=== PATIENT | male | born 1935 | race Caucasian/White ===

== ENCOUNTER 2019-10-02 10:27 | Inpatient (IN) | payer OTHER ==
[~2019-10-02] VITALS: Ht 172.7 cm; Wt 80.1 kg
[2019-10-02] MEDS ORDERED: SODIUM CHLORIDE 0.9% 1,000 ML IVB ONE ×2 (11:14→12:57)
[2019-10-02] MEDS ORDERED: ONDANSETRON HCL 4 MG/2 ML VIAL IV ONE ×2 (11:15→13:00)
[2019-10-02 11:50] LABS: Basophils # (auto) 0 10 ^3/uL (0-0.2); Basophils % (auto) 0.2 % (0.0-2.0); Eosinophils # (auto) 0 10 ^3/uL (0-0.8); Hematocrit 40.6 % (41.0-53.0); Hemoglobin 13.5 g/dL (13.5-17.5); Lymphocytes # (auto) 0.4 10 ^3/uL (0.4-5.4); Lymphocytes % (auto) 1.8 % (10.0-50.0); Mean Corpuscular Hemoglobin 33.1 pg (28.0-32.0); Mean Corpuscular Hgb Conc. 33.3 g/dL (32.0-36.0); Mean Corpuscular Volume 99.2 fL (80.0-100.0); Monocytes # (auto) 1.7 10 ^3/uL (0-1.3); Monocytes % (auto) 7.7 % (0.0-12.0); Neutrophils # (auto) 19.6 10 ^3/uL (1.6-8.6); Neutrophils % (auto) 90.3 % (37.0-80.0); Platelet Count (auto) 201 10^3/uL (140-450); Red Cell Distribution Width 13.9 % (11.8-14.3); White Blood Cell 21.7 10^3/uL (4.4-10.8)
[2019-10-02 12:04] LABS: INR 1.23 (0.9-1.15); Partial Thromboplastin Time 28.5 sec (23.64-32.05)
[2019-10-02 12:06] LABS: Albumin 3.3 g/dL (3.4-5.0); Anion Gap 8 (5-15); Blood Urea Nitrogen 18 mg/dL (7-18); Calcium 9.2 mg/dL (8.5-10.1); Carbon Dioxide 24 mmol/L (21-32); Chloride 106 mmol/L (98-107); Glucose 123 mg/dL (74-106); Potassium 3.6 mmol/L (3.5-5.1); Sodium 138 mmol/L (136-145)
[2019-10-02 12:07] LABS: Magnesium 2.4 mg/dL (1.6-2.6)
[2019-10-02 12:12] LABS: Alanine Aminotransferase 16 U/L (16-61); Alkaline Phosphatase 124 U/L (45-117); Aspartate Aminotransferase 15 U/L (15-37); BUN/Creatinine Ratio 20.2; Bilirubin, Total 1.6 mg/dL (0.2-1.0); GFR African American 104 mL/min; GFR Non-African American 86 mL/min
[2019-10-02] MEDS ORDERED: cefTRIAXone 1GM/50ML D5W 50 ML IV ONE (14:30)
[2019-10-02] MEDS ORDERED: MORPHINE SULF INJ 2 MG/ML SYRINGE 1ML IV ONE (14:30)
[2019-10-02 16:35] LABS: Urine Bacteria MOD /hpf (None Seen); Urine Blood 1+ /uL (Negative); Urine WBC 3812 /hpf (0 - 3)
[2019-10-02 16:41] LABS: Urine Specific Gravity 1.015 (1.001-1.035)
[2019-10-02] MEDS ORDERED: NITROGLYCERIN 0.4 MG SL TAB SL PRN (16:45)
[2019-10-02] MEDS ORDERED: traMADol HCL 50 MG TAB PO PRN (16:45)
[2019-10-02] MEDS ORDERED: PIPERACILLIN-TAZOB 3.375GM 100 ML IV ONE (16:45)
[2019-10-02] MEDS ORDERED: ONDANSETRON HCL 4 MG/2 ML VIAL IV PRN (16:45)
[2019-10-02] MEDS ORDERED: MORPHINE SULF INJ 2 MG/ML SYRINGE 1ML IV PRN (16:45)
[2019-10-02] MEDS ORDERED: DEXTROSE (50%) 50ML SYRG IV PRN (16:45)
[2019-10-02] MEDS ORDERED: ACETAMINOPHEN 500 MG TAB PO PRN (16:45)
[2019-10-02] MEDS: SODIUM CHLORIDE 0.9% 1,000 ML IV SCH (17:23)
[2019-10-02] MEDS: ENOXAPARIN SOD 40 MG/0.4 ML SYRINGE SC SCH (17:24)
[2019-10-02] MEDS: PIPERACILLIN-TAZOB 3.375GM 100 ML IV SCH ×2 (17:24→22:17)
[2019-10-02] MEDS: InsuLIN REG 1unit/0.01ml Soln (100units/ml) SC SCH ×2 (17:24→22:17)
[2019-10-02] MEDS: ACCU-CHEK COMFORT CURVE STRIP VI SCH ×2 (17:32→22:17)
[2019-10-02] MEDS: FAMOTIDINE 20 MG TAB PO SCH (21:59)
[2019-10-02 22:00] VITALS: BP 121/62
--- NOTE | 2019-10-03 02:10 | NUR ---
HOSPITALIST PAGED PATIENT'S THIRD SET OF TROPONIN SHOWS AN INCREASE TO [phone]. HOSPITALIST PAGED TO SEE IF AN ADDITIONAL TROPONIN DESIRED. WILL AWAIT CALL BACK OR ORDERS.
--- NOTE | 2019-10-03 02:24 | NUR ---
HOSPITALIST REACHED. INFORMED MD OF RISING TROPONIN. VALUE NOT CRITICAL AND PATIENT NOT COMPLAINING OF CHEST PAIN. NO NEW ORDERS AT THIS TIME. PER MD, IF PATIENT BEGINS TO COMPLAIN, THEN PERFORM EKG AND ORDER TROPONIN. WILL CONTINUE TO MONITOR AT THIS TIME.
[2019-10-03] MEDS: SODIUM CHLORIDE 0.9% 1,000 ML IV SCH ×2 (02:33→11:45)
[2019-10-03 05:00] VITALS: BP 119/60
[2019-10-03] MEDS: PIPERACILLIN-TAZOB 3.375GM 100 ML IV SCH ×4 (05:06→22:33)
[2019-10-03 06:22] LABS: Basophils # (auto) 0 10 ^3/uL (0-0.2); Basophils % (auto) 0.2 % (0.0-2.0); Eosinophils # (auto) 0 10 ^3/uL (0-0.8); Eosinophils % (auto) 0.2 % (0.0-7.0); Hematocrit 41.3 % (41.0-53.0); Hemoglobin 13.9 g/dL (13.5-17.5); Lymphocytes # (auto) 0.8 10 ^3/uL (0.4-5.4); Lymphocytes % (auto) 5.3 % (10.0-50.0); Mean Corpuscular Hemoglobin 33.6 pg (28.0-32.0); Mean Corpuscular Hgb Conc. 33.6 g/dL (32.0-36.0); Mean Corpuscular Volume 100.1 fL (80.0-100.0); Monocytes # (auto) 1.4 10 ^3/uL (0-1.3); Monocytes % (auto) 9.4 % (0.0-12.0); Neutrophils # (auto) 12.4 10 ^3/uL (1.6-8.6); Neutrophils % (auto) 84.9 % (37.0-80.0); Platelet Count (auto) 189 10^3/uL (140-450); Red Blood Cells 4.13 10^6/uL (4.5-5.90); Red Cell Distribution Width 14.2 % (11.8-14.3); White Blood Cell 14.6 10^3/uL (4.4-10.8)
[2019-10-03] MEDS: ACCU-CHEK COMFORT CURVE STRIP VI SCH ×4 (07:00→22:32)
[2019-10-03] MEDS: InsuLIN REG 1unit/0.01ml Soln (100units/ml) SC SCH ×4 (07:00→22:33)
[2019-10-03 07:50] VITALS: BP 117/61
--- NOTE | 2019-10-03 07:50 | NUR ---
OPENING SHIFT NOTE ASSUMED CARE OF PATIENT FROM SHAFT TENDER RN KAYLAH. PATIENT IS AWAKE, ALERT, AND ORIENTED X4. PATIENT HAS NO S/S OF DISTRESS/SOB OR PAIN. INSTRUCTED PATIENT ON POC, PATIENT VERBALIZED UNDERSTANDING. BED IS IN LOWEST POSITION WITH SIDE RAILS RAISED X2, BED WHEELS LOCKED, AND CALL LIGHT IS WITHIN REACH. WILL CONTINUE TO MONITOR.
[2019-10-03 09:00] VITALS: BP 117/61
--- NOTE | 2019-10-03 09:18 | NUR ---
HANDOFF REPORT GIVEN TO GABRIEL ERAZO. PATIENT HAS NO S/S OF DISTRESS/SOB OR PAIN AT THIS TIME.
--- NOTE | 2019-10-03 09:30 | NUR ---
Dressing to IV changed at this time noted bloody. Patient tolerated well. Cont care
[2019-10-03] MEDS: ENOXAPARIN SOD 40 MG/0.4 ML SYRINGE SC SCH (11:25)
[2019-10-03] MEDS: FAMOTIDINE 20 MG TAB PO SCH ×2 (11:26→22:33)
--- NOTE | 2019-10-03 12:07 | NUR ---
Positive blood culture shows gram negative rods. MD Dodge paged to notify and voicemail left on answering service. Cont care
[2019-10-03 13:00] VITALS: BP 101/56
[2019-10-03 17:00] VITALS: BP 117/73
--- NOTE | 2019-10-03 19:00 | NUR ---
Patient care endorsed endorsed care to She ryder. Patient accidentally removed IV. New IV started to right FA 20 G pt tolerated well and IV abx resumed as ordered. No distress noted or sob. Call light within reach. Fall precs in place per protocol.
--- NOTE | 2019-10-03 19:40 | NUR ---
RECEIVED PATIENT FROM DAY SHIFT RN. PATIENT RESTING IN BED. NO S/S OF DISTRESS NOTED. DENIED PAIN FOR NOW. REPOSITIONED PATIENT TO COMFORT. PATIENT TOLERATED WELL. REORIENTED PATIENT PLACE AND SITUATION. POC INSTRUCTED AND ENCOURAGED PATIENT TO CALL FOR TRUCK MECHANIC APPRENTICE IF NEEDED. BED IN LOWEST POSITION WITH SIDE RAILS UP X 2. CALL ESQUIVEL WITHIN REACH. ALARM ON. CONTINUE TO MONITOR FOR CHANGES Q1H AND PRN.
[2019-10-03 22:00] VITALS: BP 137/55
--- NOTE | 2019-10-03 22:34 | NUR ---
ACCU-CHECK, BS 157. INSULIN GIVEN ORDERED. CONTINUE TO MONITOR.
--- NOTE | 2019-10-04 02:09 | NUR ---
PATIENT SLEEPING. NO S/S OF DISTRESS NOTED. CONTINUE TO MONITOR.
[2019-10-04] MEDS: SODIUM CHLORIDE 0.9% 1,000 ML IV SCH ×2 (04:46→17:05)
[2019-10-04] MEDS: PIPERACILLIN-TAZOB 3.375GM 100 ML IV SCH ×4 (04:47→22:25)
[2019-10-04 05:00] VITALS: BP 118/54
[2019-10-04] MEDS: ACCU-CHEK COMFORT CURVE STRIP VI SCH ×4 (06:18→22:25)
[2019-10-04] MEDS: InsuLIN REG 1unit/0.01ml Soln (100units/ml) SC SCH ×4 (06:18→22:30)
--- NOTE | 2019-10-04 06:23 | NUR ---
ACCU-CHECK, BS 103. NO COVERAGE. CONTINUE TO MONITOR.
[2019-10-04 07:08] LABS: Basophils # (auto) 0 10 ^3/uL (0-0.2); Basophils % (auto) 0.2 % (0.0-2.0); Eosinophils # (auto) 0.1 10 ^3/uL (0-0.8); Hematocrit 38.2 % (41.0-53.0); Hemoglobin 12.7 g/dL (13.5-17.5); Lymphocytes # (auto) 0.8 10 ^3/uL (0.4-5.4); Lymphocytes % (auto) 7.1 % (10.0-50.0); Mean Corpuscular Hemoglobin 32.9 pg (28.0-32.0); Mean Corpuscular Hgb Conc. 33.2 g/dL (32.0-36.0); Mean Corpuscular Volume 99.1 fL (80.0-100.0); Monocytes # (auto) 1.6 10 ^3/uL (0-1.3); Neutrophils # (auto) 8.6 10 ^3/uL (1.6-8.6); Neutrophils % (auto) 77.7 % (37.0-80.0); Platelet Count (auto) 208 10^3/uL (140-450); Red Blood Cells 3.85 10^6/uL (4.5-5.90); Red Cell Distribution Width 13.9 % (11.8-14.3); White Blood Cell 11.1 10^3/uL (4.4-10.8)
--- NOTE | 2019-10-04 07:25 | NUR ---
OPENING SHIFT NOTE ASSUMED CARE OF PATIENT FROM ART EDITOR RN TONIO. PATIENT IS AWAKE, ALERT, AND ORIENTED X4. PATIENT HAS NO S/S OF DISTRESS/SOB OR PAIN. INSTRUCTED PATIENT ON POC, PATIENT VERBALIZED UNDERSTANDING. BED IS IN LOWEST POSITION WITH SIDE RAILS RAISED X2, BED WHEELS LOCKED, AND CALL LIGHT IS WITHIN REACH. WILL CONTINUE TO MONITOR.
[2019-10-04 07:27] LABS: Calcium 8.7 mg/dL (8.5-10.1); Potassium 3.4 mmol/L (3.5-5.1)
[2019-10-04 07:29] LABS: BUN/Creatinine Ratio 18.7
[2019-10-04 08:20] VITALS: BP 134/79
[2019-10-04 08:55] VITALS: BP 134/79
[2019-10-04] MEDS: FAMOTIDINE 20 MG TAB PO SCH ×2 (09:58→22:25)
[2019-10-04] MEDS: ENOXAPARIN SOD 40 MG/0.4 ML SYRINGE SC SCH (10:00)
--- NOTE | 2019-10-04 12:10 | NUR ---
MIDOU BEDSIDE UPDATED MD ON PATIENT'S STATUS, MD IS AWARE. MD ORDERED POTASSIUM, LACTULOSE AND COLACE TO BE GIVEN.
[2019-10-04] MEDS ORDERED: POTASSIUM CHL 20 Meq TABLET PO ONE (12:15)
[2019-10-04] MEDS ORDERED: LACTULOSE 20Gm/30ML SOLN PO ONE (12:30)
[2019-10-04 13:06] VITALS: BP 124/68
[2019-10-04 16:43] VITALS: BP 107/64
--- NOTE | 2019-10-04 19:05 | NUR ---
CLOSING SHIFT NOTE ENDORSED CARE TO CRIPPLE CHASER RN TONIO. PATIENT HAS NO S/S OF DISTRESS/SOB OR PAIN AT THIS TIME.
--- NOTE | 2019-10-04 19:38 | NUR ---
RECEIVED PATIENT FROM DAY SHIFT RN. PATIENT JUST BACK FROM BATHROOM. ASSISTED PATIENT BACK TO THE BED. NO S/S OF DISTRESS NOTED. DENIED PAIN FOR NOW. POC INSTRUCTED AND ENCOURAGED PATIENT TO CALL FOR ROLL SHEETING CUTTER IF NEEDED. BED IN LOWEST POSITION WITH SIDE RAILS UP X 2. CALL ESQUIVEL WITHIN REACH. ALARM ON. CONTINUE TO MONITOR FOR CHANGES Q1H AND PRN.
--- NOTE | 2019-10-04 21:40 | NUR ---
ASSISTED PATIENT FOR URINAL AND BACK TO BED. PATIENT TOLERATED WELL. CONTINUE TO MONITOR.
[2019-10-04] MEDS: DOCUSATE SOD 100 MG CAP PO SCH (22:25)
--- NOTE | 2019-10-04 22:36 | NUR ---
ACCU-CHECK, BS 139. PATIENT REFUSED TO TAKE INSULIN AND HE'S BEEN REFUSED INSULIN DAY SHIFT TOO. WILL PASS IT TO DAY SHIFT. CONTINUE TO MONITOR.
[2019-10-04 23:11] VITALS: BP 130/61
--- NOTE | 2019-10-05 00:57 | NUR ---
ASSISTED PATIENT FOR URINAL AND BACK TO BED. PATIENT TOLERATED WELL. CONTINUE TO MONITOR.
--- NOTE | 2019-10-05 02:58 | NUR ---
PATIENT SLEEPING. NO S/S OF DISTRESS NOTED. CONTINUE CARE.
[2019-10-05 05:18] VITALS: BP 129/62
[2019-10-05] MEDS: PIPERACILLIN-TAZOB 3.375GM 100 ML IV SCH ×3 (05:31→15:56)
[2019-10-05] MEDS: ACCU-CHEK COMFORT CURVE STRIP VI SCH ×3 (06:26→17:00)
[2019-10-05] MEDS: InsuLIN REG 1unit/0.01ml Soln (100units/ml) SC SCH ×3 (06:26→17:00)
--- NOTE | 2019-10-05 06:27 | NUR ---
ACCU-CHECK, BS 110, NO COVERAGE. CONTINUE TO MONITOR.
--- NOTE | 2019-10-05 07:33 | NUR ---
RECEIVED PATIENT FROM [facility] SHIFT RN. AWAKE ALERT AND ORIENTED X4. DENIES SOB/PAIN, NO S/S DISTRESS NOTED. PLAN OF CARE DISCUSSED. BED IN LOW AND LOCKED POSITION WITH X2 RAILS UP. ENCOURAGED TO CALL FOR ASSISTANCE PRN. WILL CONTINUE TO MONITOR Q1HR AND PRN.
[2019-10-05 08:00] VITALS: BP 105/57
[2019-10-05 08:56] VITALS: BP 105/57
[2019-10-05] MEDS: FAMOTIDINE 20 MG TAB PO SCH (09:30)
[2019-10-05] MEDS: DOCUSATE SOD 100 MG CAP PO SCH (09:31)
[2019-10-05] MEDS: ENOXAPARIN SOD 40 MG/0.4 ML SYRINGE SC SCH (09:31)
[2019-10-05 12:48] VITALS: BP 124/74
--- NOTE | 2019-10-05 13:06 | NUR ---
Nutrition Assessment Notes Please refer to link for full assessment notes. Est Energy needs: [id number] kcals (20-23 kcal/kgBW) Est Protein needs: 80-88 gms/day (1.0-1.1 gm/kgBW) Will continue to monitor and reassess prn. Addendum: 10/05/19 at [address] Amended: Links added.
--- NOTE | 2019-10-05 13:48 | NUR ---
ASSESSMENT CONSTRUCTION PRODUCER SPOKE WITH PT'S SPOUSE SHARON [phone] PER INITIAL ASSESSMENT. PT IS A 84 YR OLD MALE ADMITTED FOR SEPSIS, HT OF HTN, CAD, DM. PT'S PCP IS DR. JUAN AT [facility] IN [place]. PT HAS AN AHCD, SPOUSE IS EMERGENCY DECISION MAKER. PT RESIDES WITH SPOUSE, THEY ARE BOTH INDEPENDENT WITH ADL'S, NO DME. SPOUSE SAYS PT HAS BEEN WEAK IN RECENT WEEKS AND HAD DIFFICULTY AMBULATING. CONSTRUCTION PRODUCER CONFERRED WITH BEDSIDE RN XENIA, PT HAS WORKED WITH PT DURING ADMISSION AND IS AMBULATING WELL AND GOING TO THE RESTROOM ON HIS OWN. SS TO CONTINUE MONITORING PT FOR POSSIBLE ANTIBIOTICS NEEDS POST DC. PT TO CONTINUE WORKING PT, SS TO CONTINUE MONITORING FOR DME (WALKER) NEEDS. NO OTHER SS NEEDS IDENTIFIED, SS TO REMAIN AVAILABLE NEEDED. Addendum: 10/05/19 at 1354 by ELLIE GRAHAM SS Amended: Links added.
[2019-10-05 17:20] VITALS: BP 131/75
--- NOTE | 2019-10-05 19:15 | NUR ---
OPENING SHIFT NOTE ASSUMED CARE OF PATIENT FROM DAY SHIFT. PATIENT IS AWAKE, ALERT, AND ORIENTED X4. PATIENT HAS NO S/S OF DISTRESS/SOB OR PAIN. INSTRUCTED PATIENT ON POC, PATIENT VERBALIZED UNDERSTANDING. BED IS IN LOWEST POSITION WITH SIDE RAILS RAISED X2, BED WHEELS LOCKED, AND CALL LIGHT IS WITHIN REACH. WILL CONTINUE TO MONITOR.
[2019-10-05 19:34] VITALS: BP 131/75
--- NOTE | 2019-10-05 20:24 | NUR ---
Discharge instructions given as ordered. Encourage to follow up with PMD as instructed. All questions and concerns addressed. Patient verbalized understanding. Medication reconciliation form completed and copy given to patient. Home medications held in Pharmacy returned to patient. IV removed with catheter intact, pressure dressing applied. Telemetry unit returned to ICU. Patient taken to vehicle via wheelchair with all personal belongings, accompanied by staff. No distress noted at time of departure.
== END 2019-10-05 20:22 | disposition home or self-care (01) | DRG 872 ==
LOC: ER 10:27 → TELE 10:28 → TELE-WESTW 21:00
PROVIDERS: ADMIT Internal Medicine; ATTEND Internal Medicine Geriatric Medicine
DX: A41.9 Sepsis, unspecified organism (principal); N39.0 Urinary tract infection, site not specified; K80.20 Calculus of gallbladder without cholecystitis without obstruction; I10 Essential (primary) hypertension; E11.9 Type 2 diabetes mellitus without complications; E66.3 Overweight; E78.5 Hyperlipidemia, unspecified; K57.30 Diverticulosis of large intestine without perforation or abscess without bleeding; N21.0 Calculus in bladder; I25.10 Atherosclerotic heart disease of native coronary artery without angina pectoris; Z82.49 Family history of ischemic heart disease and other diseases of the circulatory system; Z83.3 Family history of diabetes mellitus; Z68.25 Body mass index [BMI] 25.0-25.9, adult
CPT/HCPCS: 36415; 71046; 74176; 80048; 80053; 81001; 82150; 82962; 83036; 83605; 83690; 83735; 83880; 84484; 85025; 85610; 85730; 87040; 87077; 87086; 87186; 93005; G0378; J0696; J1815; J2405; J2543

== ENCOUNTER 2022-06-20 05:47 | Inpatient (IN) | payer OTHER ==
[~2022-06-20] VITALS: Ht 170.2 cm; Wt 75.7 kg
[2022-06-20 06:33] LABS: INR 1.03 (0.9-1.15); Partial Thromboplastin Time 26.3 sec (24.6-33.4)
[2022-06-20 06:34] LABS: Albumin 3.4 g/dL (3.4-5.0); Calcium 8.9 mg/dL (8.5-10.1); Magnesium 2.2 mg/dL (1.6-2.6); Potassium 3.7 mmol/L (3.5-5.1)
[2022-06-20 06:41] LABS: BUN/Creatinine Ratio 23.3; Bilirubin, Total 0.6 mg/dL (0.2-1.0); Total Protein 7.5 g/dL (6.4-8.2)
[2022-06-20] MEDS ORDERED: NITROGLYCERIN 0.4 MG SL TAB SL ONE (06:45)
[2022-06-20] MEDS ORDERED: ASPirin 325 MG TAB PO ONE (06:45)
[2022-06-20] MEDS ORDERED: ENOXAPARIN SOD 80 MG/0.8ML SYRINGE SC ONE (07:30)
[2022-06-20 08:17] LABS: Basophils # (auto) 0.1 10 ^3/uL (0-0.2); Basophils % (auto) 0.9 % (0.0-2.0); Eosinophils # (auto) 0.1 10 ^3/uL (0-0.8); Eosinophils % (auto) 1.6 % (0.0-7.0); Hemoglobin 12.9 g/dL (13.5-17.5); Lymphocytes % (auto) 14.1 % (10.0-50.0); Mean Corpuscular Hemoglobin 33.2 pg (28.0-32.0); Mean Corpuscular Hgb Conc. 33.9 g/dL (32.0-36.0); Mean Corpuscular Volume 97.8 fL (80.0-100.0); Monocytes # (auto) 0.7 10 ^3/uL (0-1.3); Monocytes % (auto) 9.1 % (0.0-12.0); Neutrophils # (auto) 5.4 10 ^3/uL (1.6-8.6); Neutrophils % (auto) 74.3 % (37.0-80.0); Nucleated Red Blood Cells % 0.1 %; Red Blood Cells 3.89 10^6/uL (4.5-5.90); Red Cell Distribution Width 13.4 % (11.8-14.3); White Blood Cell 7.2 10^3/uL (4.4-10.8)
[2022-06-20 09:11] LABS: Urine Bacteria FEW /hpf (None Seen); Urine Blood Negative /uL (Negative); Urine Mucus FEW (None Seen); Urine Specific Gravity 1.014 (1.001-1.035); Urine WBC 196 /hpf (0 - 3)
[2022-06-20] MEDS ORDERED: AMLO-496 PO (13:39)
[2022-06-20] MEDS ORDERED: TAMS0.4C36 PO (13:39)
[2022-06-20] MEDS ORDERED: FUR20T PO (13:39)
[2022-06-20] MEDS ORDERED: POTA8TAB2 PO (13:39)
[2022-06-20] MEDS ORDERED: METF-370 PO (13:39)
[2022-06-20] MEDS ORDERED: LOVA20TA4 PO (13:39)
[2022-06-20] MEDS ORDERED: LOSA-39 PO (13:39)
[2022-06-20] MEDS ORDERED: CETI-120 PO (13:39)
[2022-06-20] MEDS ORDERED: NITROGLYCERIN 0.4 MG SL TAB SL PRN (13:45)
[2022-06-20] MEDS ORDERED: MORPHINE SULFATE INJ 2 MG/ml SYRG IV PRN (13:45)
[2022-06-20] MEDS ORDERED: cefTRIAXone 1GM/50ML D5W 50 ML IV ONE (14:00)
[2022-06-20] MEDS ORDERED: DEXTROSE (50%) 50ML SYRG IV PRN (14:00)
[2022-06-20] MEDS: PRAVASTATIN SODIUM 20 MG TAB PO SCH (14:07)
[2022-06-20 14:08] LABS: Cholesterol 159 mg/dL (< 200); Triglycerides 52 mg/dL (< 150)
[2022-06-20] MEDS: SODIUM CHLORIDE 0.9% 1,000 ML IV SCH (14:11)
[2022-06-20 14:13] LABS: HDL Cholesterol 64 mg/dL (40-59); LDL Cholesterol 89 mg/dL (< 100)
[2022-06-20 14:57] VITALS: BP 140/62
[2022-06-20 16:40] VITALS: BP 140/59
[2022-06-20] MEDS: InsuLIN REG 1unit/0.01ml Soln (100units/ml) SC SCH ×2 (17:00→21:45)
[2022-06-20] MEDS: ACCU-CHEK COMFORT CURVE STRIP VI SCH ×2 (17:00→21:38)
[2022-06-20 21:49] VITALS: BP 154/71
[2022-06-21] VITALS (10 sets, daily range): BP systolic 88–155; BP diastolic 46–80
[2022-06-21] MEDS: ACCU-CHEK COMFORT CURVE STRIP VI SCH ×4 (06:26→22:37)
[2022-06-21] MEDS: InsuLIN REG 1unit/0.01ml Soln (100units/ml) SC SCH ×4 (06:26→22:00)
[2022-06-21 07:51] LABS: Basophils # (auto) 0.1 10 ^3/uL (0-0.2); Basophils % (auto) 0.6 % (0.0-2.0); Eosinophils # (auto) 0.2 10 ^3/uL (0-0.8); Eosinophils % (auto) 2.2 % (0.0-7.0); Hemoglobin 13.3 g/dL (13.5-17.5); Lymphocytes # (auto) 1.3 10 ^3/uL (0.4-5.4); Lymphocytes % (auto) 13.2 % (10.0-50.0); Mean Corpuscular Hemoglobin 33.2 pg (28.0-32.0); Mean Corpuscular Volume 97.5 fL (80.0-100.0); Monocytes % (auto) 10.2 % (0.0-12.0); Neutrophils # (auto) 7.5 10 ^3/uL (1.6-8.6); Neutrophils % (auto) 73.8 % (37.0-80.0); Red Cell Distribution Width 13.7 % (11.8-14.3); White Blood Cell 10.2 10^3/uL (4.4-10.8)
[2022-06-21 08:04] LABS: Albumin 3.2 g/dL (3.4-5.0); BUN/Creatinine Ratio 18.5; Calcium 8.9 mg/dL (8.5-10.1); Potassium 3.8 mmol/L (3.5-5.1)
[2022-06-21 08:07] LABS: Bilirubin, Total 0.8 mg/dL (0.2-1.0); Total Protein 7.2 g/dL (6.4-8.2)
[2022-06-21] MEDS: ASPirin 81 mg TAB PO SCH (09:07)
[2022-06-21] MEDS: LOSARTAN POTASSIUM 50 MG TAB PO SCH (09:08)
[2022-06-21] MEDS: amLODIPine BESYLATE 5 MG TAB PO SCH (09:08)
[2022-06-21] MEDS: PRAVASTATIN SODIUM 20 MG TAB PO SCH (09:08)
[2022-06-21] MEDS: cefTRIAXone 1GM/50ML D5W 50 ML IV SCH (09:09)
[2022-06-21] MEDS: TAMSULOSIN HYDROCHLORIDE 0.4 MG CAP PO SCH (09:09)
[2022-06-21] MEDS: SODIUM CHLORIDE 0.9% 1,000 ML IV SCH (09:12)
[2022-06-21] MEDS ORDERED: ANGIOMAX 250 MG VIAL IV ONE (15:20)
[2022-06-21] MEDS ORDERED: fentaNYL CITRATE 100 MCG/2 ML VL ONE (15:20)
[2022-06-21] MEDS ORDERED: MIDAZOLAM HCL 2MG/2ML 2ml VIAL (1mg/ml) ONE (15:21)
[2022-06-21] MEDS ORDERED: SODIUM CHL 0.9% 50 ML ONE (15:21)
[2022-06-21] MEDS ORDERED: IODIXANOL 320MG/ML 100ML BTL IV ONE (15:22)
[2022-06-21] MEDS ORDERED: CLOPIDOGREL 300 MG TAB ONE (16:17)
[2022-06-22 05:00] VITALS: BP 128/57
[2022-06-22] MEDS: ACCU-CHEK COMFORT CURVE STRIP VI SCH ×2 (06:44→11:46)
[2022-06-22] MEDS: InsuLIN REG 1unit/0.01ml Soln (100units/ml) SC SCH ×2 (06:44→11:30)
[2022-06-22] MEDS: SODIUM CHLORIDE 0.9% 1,000 ML IV SCH (06:44)
[2022-06-22 08:00] VITALS: BP 128/62
[2022-06-22 09:00] VITALS: BP 128/62
[2022-06-22] MEDS: ASPirin 81 mg TAB PO SCH (09:41)
[2022-06-22] MEDS: cefTRIAXone 1GM/50ML D5W 50 ML IV SCH (09:41)
[2022-06-22] MEDS: TAMSULOSIN HYDROCHLORIDE 0.4 MG CAP PO SCH (09:42)
[2022-06-22] MEDS: LOSARTAN POTASSIUM 50 MG TAB PO SCH (09:42)
[2022-06-22] MEDS: amLODIPine BESYLATE 5 MG TAB PO SCH (09:42)
[2022-06-22] MEDS: PRAVASTATIN SODIUM 20 MG TAB PO SCH (09:43)
[2022-06-22] MEDS ORDERED: CLOPIDOGREL BISULFATE 75 MG TAB PO SCH (10:00)
[2022-06-22] MEDS ORDERED: ASPI1TAB20 PO (10:02)
[2022-06-22] MEDS ORDERED: CLOP75TA28 PO (10:02)
[2022-06-22] MEDS ORDERED: CIPR-273 PO (10:02)
[2022-06-22 11:09] VITALS: BP 128/62
[2022-06-22 13:00] VITALS: BP 100/53
== END 2022-06-22 13:50 | disposition home or self-care (01) | DRG 246 ==
LOC: ER 05:47 → EDBD 05:47 → TELE 13:36 → TELE-WESTW 13:37
PROVIDERS: ADMIT Nurse Practitioner Family; ATTEND Internal Medicine Geriatric Medicine
PROC: 4A023N7 Measurement of Cardiac Sampling and Pressure, Left Heart, Percutaneous Approach (ICD-10-PCS; principal; 2022-06-21)
PROC: 027235Z Dilation of Coronary Artery, Three Arteries with Two Drug-eluting Intraluminal Devices, Percutaneous Approach (ICD-10-PCS; 2022-06-21)
PROC: B211YZZ Fluoroscopy of Multiple Coronary Arteries using Other Contrast (ICD-10-PCS; 2022-06-21)
PROC: B215YZZ Fluoroscopy of Left Heart using Other Contrast (ICD-10-PCS; 2022-06-21)
DX: I21.4 Non-ST elevation (NSTEMI) myocardial infarction (principal); I50.31 Acute diastolic (congestive) heart failure; N39.0 Urinary tract infection, site not specified; E11.9 Type 2 diabetes mellitus without complications; I25.10 Atherosclerotic heart disease of native coronary artery without angina pectoris; Z20.822 Contact with and (suspected) exposure to COVID-19; E66.9 Obesity, unspecified; I11.0 Hypertensive heart disease with heart failure; E78.5 Hyperlipidemia, unspecified; N40.0 Benign prostatic hyperplasia without lower urinary tract symptoms; Z82.49 Family history of ischemic heart disease and other diseases of the circulatory system; I25.2 Old myocardial infarction; Z83.3 Family history of diabetes mellitus; Z68.26 Body mass index [BMI] 26.0-26.9, adult
CPT/HCPCS: 36415; 71045; 80053; 80061; 81001; 82962; 83735; 83880; 84443; 84484; 85025; 85379; 85610; 85730; 87086; 87088; 87186; 87426; 92928; 92929; 93005; 93306; 93458; 96365; 96372; 99152; 99153; 99291; G0378; J0696; J1815; J2250; Q9967

== ENCOUNTER 2022-08-03 01:44 | Inpatient (IN) | payer OTHER ==
[~2022-08-03] VITALS: Ht 180.3 cm; Wt 68.3 kg
[2022-08-03] VITALS (44 sets, daily range): BP systolic 95–145; BP diastolic 32–71
[~2022-08-03 01:44] MED LIST: AMLO-496 PO; ASPI1TAB20 PO; CETI-120 PO; CIPR-273 PO; CLOP75TA28 PO; FUR20T PO; LOSA-39 PO; LOVA20TA4 PO; METF-370 PO; POTA8TAB2 PO; TAMS0.4C36 PO
[2022-08-03] MEDS ORDERED: SODIUM CHLORIDE 0.9% 1,000 ML IV ONE (02:00)
[2022-08-03 02:17] LABS: Eosinophils # (auto) 0.5 10 ^3/uL (0-0.8); Monocytes # (auto) 0.6 10 ^3/uL (0-1.3); Monocytes % (auto) 4.5 % (0.0-12.0)
[2022-08-03 02:19] LABS: Basophils # (auto) 0.1 10 ^3/uL (0-0.2); Basophils % (auto) 0.4 % (0.0-2.0); Eosinophils % (auto) 3.9 % (0.0-7.0); Hematocrit 27.5 % (41.0-53.0); Hemoglobin 9.2 g/dL (13.5-17.5); Lymphocytes # (auto) 0.9 10 ^3/uL (0.4-5.4); Lymphocytes % (auto) 7.2 % (10.0-50.0); Mean Corpuscular Hemoglobin 33.5 pg (28.0-32.0); Mean Corpuscular Hgb Conc. 33.6 g/dL (32.0-36.0); Mean Corpuscular Volume 99.8 fL (80.0-100.0); Neutrophils # (auto) 10.6 10 ^3/uL (1.6-8.6); Red Blood Cells 2.76 10^6/uL (4.5-5.90); Red Cell Distribution Width 13.5 % (11.8-14.3); White Blood Cell 12.6 10^3/uL (4.4-10.8)
[2022-08-03 02:23] LABS: Albumin 3.1 g/dL (3.4-5.0); BUN/Creatinine Ratio 27.2 (10.0-20.0); Magnesium 2.5 mg/dL (1.6-2.6); Potassium 5.3 mmol/L (3.5-5.1)
[2022-08-03 02:26] LABS: Bilirubin, Total 0.4 mg/dL (0.2-1.0); Total Protein 6.9 g/dL (6.4-8.2)
[2022-08-03] MEDS ORDERED: IOHEXOL 350 MG/ML 100ML IJ ONE (03:05)
[2022-08-03 03:06] LABS: INR 1.06 (0.9-1.15)
[2022-08-03] MEDS ORDERED: ACETAMINOPHEN 325 MG TAB PO PRN (04:45)
[2022-08-03] MEDS ORDERED: cefTRIAXone 1GM/50ML D5W 50 ML IV ONE (04:45)
[2022-08-03] MEDS ORDERED: ALBUMIN 25% 100 ML IV ONE (04:45)
[2022-08-03] MEDS ORDERED: ONDANSETRON HCL 4 MG/2 ML VIAL IV PRN ×2 (04:45→09:15)
[2022-08-03] MEDS ORDERED: DOCUSATE SOD 100 MG CAP PO PRN (04:45)
[2022-08-03] MEDS ORDERED: NITROGLYCERIN 0.4 MG SL TAB SL PRN (04:45)
[2022-08-03] MEDS ORDERED: DEXTROSE (50%) 50ML SYRG IV PRN (04:45)
[2022-08-03] MEDS ORDERED: HYDROcodone-ACET 5/325MG TAB PO PRN (04:45)
[2022-08-03] MEDS ORDERED: MORPHINE SULFATE INJ 2 MG/ml SYRG IV PRN (04:45)
[2022-08-03] MEDS: SODIUM CHLORIDE 0.9% 1,000 ML IV SCH ×4 (05:26→22:24)
[2022-08-03 06:57] LABS: Hematocrit 28.2 % (41.0-53.0); Hemoglobin 9.5 g/dL (13.5-17.5); Mean Corpuscular Hgb Conc. 33.6 g/dL (32.0-36.0); Mean Corpuscular Volume 98.2 fL (80.0-100.0); Red Blood Cells 2.87 10^6/uL (4.5-5.90); Red Cell Distribution Width 13.3 % (11.8-14.3); White Blood Cell 13.6 10^3/uL (4.4-10.8)
[2022-08-03 07:04] LABS: Albumin 3.8 g/dL (3.4-5.0); Calcium 8.7 mg/dL (8.5-10.1); Potassium 4.8 mmol/L (3.5-5.1)
[2022-08-03 07:08] LABS: BUN/Creatinine Ratio 28.4 (10.0-20.0); Bilirubin, Total 0.5 mg/dL (0.2-1.0); Total Protein 6.7 g/dL (6.4-8.2)
[2022-08-03 07:18] LABS: Basophils % (manual) 0 (0.0-2.0); Blast Cells 0; Eosinophils % (manual) 0 (0-7); Metamyelocytes % 0; Myelocytes % 0; Promyelocytes % 0; Reactive Lymphocytes 0
[2022-08-03] MEDS ORDERED: ONDANSETRON HCL 4 MG/2 ML VIAL ONE (07:20)
[2022-08-03] MEDS ORDERED: ETOMIDATE (2MG/ML) 20ML VIAL IV ONE (07:20)
[2022-08-03] MEDS ORDERED: PROPOFOL 10 MG/ML 20 ML IV ONE (07:20)
[2022-08-03] MEDS ORDERED: ePHEDrine SULFATE 50 MG/ML AMP ONE (07:20)
[2022-08-03] MEDS ORDERED: DexAMETHasone SOD PHOS 10MG/1ML VIAL INJ ONE (07:20)
[2022-08-03] MEDS ORDERED: LIDOCAINE 2% (LOCAL ANESTH.) PF 5ml SDV ONE (07:20)
[2022-08-03] MEDS ORDERED: ROCURONIUM 10MG/ML 10ML VIAL IV ONE (07:24)
[2022-08-03] MEDS ORDERED: SUCCINYLCHOLINE CHLORIDE 20 MG/ML 10ML VIAL IV ONE (07:26)
[2022-08-03 07:28] LABS: Band Neutrophils % (manual) 34; Lymphocytes % (manual) 4 (10.0-50.0); Monocytes % (manual) 1 (0-12)
[2022-08-03] MEDS ORDERED: fentaNYL CITRATE 100 MCG/2 ML VL ONE (07:28)
[2022-08-03] MEDS ORDERED: ALBUMIN 5% 500 ML IV ONE (07:39)
[2022-08-03] MEDS ORDERED: ALBUMIN 5% 250 ML IV ONE ×2 (07:45)
[2022-08-03] MEDS: NOREPINEPHRINE 8 MG/250ML KIT 250 ML IV SCH ×2 (09:00→22:24)
[2022-08-03] MEDS ORDERED: PANTOPRAZOLE 80 MG in SODIUM CHL 0.9% 100 ML IV ONE (09:15)
[2022-08-03] MEDS ORDERED: HYDROmorphone HCL 2 MG/ML VL/or syr IV ONE (09:15)
[2022-08-03] MEDS: ACCU-CHEK COMFORT CURVE STRIP VI SCH ×4 (09:37→22:22)
[2022-08-03] MEDS: InsuLIN REG 1unit/0.01ml Soln (100units/ml) SC SCH ×4 (09:45→22:00)
[2022-08-03] MEDS: ASPirin 81 mg TAB PO SCH (10:00)
[2022-08-03] MEDS ORDERED: LABETALOL HCL 5 MG/ML 4ML SYRINGE IV PRN (10:15)
[2022-08-03] MEDS ORDERED: hydrALAZINE HCL 20 MG/ML VL IV PRN (10:15)
[2022-08-03] MEDS ORDERED: ePHEDrine SULFATE 50 MG/ML AMP IV PRN (10:15)
[2022-08-03] MEDS ORDERED: HYDROmorphone HCL 2 MG/ML VL/or syr IV PRN (10:15)
[2022-08-03] MEDS: MIDAZOLAM DRIP 50 mg/50mL 50 ML IV SCH ×2 (10:32→17:34)
[2022-08-03] MEDS: fentaNYL Drip 2500mCg/250mlNS 250 ML IV SCH (11:15)
[2022-08-03] MEDS: PANTOPRAZOLE 40mg/50ML NS AE 50 ML IV SCH ×4 (11:30→19:50)
[2022-08-03] MEDS ORDERED: metroNIDAZOLE 500MG/100ML 100 ML IV SCH (15:00)
[2022-08-03] MEDS: metroNIDAZOLE 500MG/100ML 100 ML IV SCH (15:19)
[2022-08-03] MEDS ORDERED: ATOR20TA50 PO (15:40)
[2022-08-03] MEDS ORDERED: LIDOCAINE 1% (LOCAL ANESTH.) PF 5ml SDV ID ONE (17:15)
[2022-08-03] MEDS: PIPERACILLIN-TAZOB 2.25GM 50 ML IV SCH (17:34)
[2022-08-03] MEDS: SODIUM CHLOR 0.9% PF (SALINE LOCK) 10ML VIAL/SYR IV SCH (22:22)
[2022-08-03] MEDS: ATORVASTATIN 20 MG TAB PO SCH (22:22)
[2022-08-04] VITALS (105 sets, daily range): BP systolic 100–141; BP diastolic 27–49
[2022-08-04] MEDS: PIPERACILLIN-TAZOB 2.25GM 50 ML IV SCH ×5 (00:03→23:48)
[2022-08-04] MEDS: metroNIDAZOLE 500MG/100ML 100 ML IV SCH ×5 (00:04→23:46)
[2022-08-04] MEDS: PANTOPRAZOLE 40mg/50ML NS AE 50 ML IV SCH ×5 (01:17→23:43)
[2022-08-04 06:05] LABS: Basophils # (auto) 0 10 ^3/uL (0-0.2); Basophils % (auto) 0.1 % (0.0-2.0); Eosinophils # (auto) 0 10 ^3/uL (0-0.8); Hematocrit 24.9 % (41.0-53.0); Hemoglobin 8.5 g/dL (13.5-17.5); Lymphocytes # (auto) 0.4 10 ^3/uL (0.4-5.4); Lymphocytes % (auto) 1.9 % (10.0-50.0); Mean Corpuscular Hemoglobin 33.6 pg (28.0-32.0); Mean Corpuscular Hgb Conc. 34.1 g/dL (32.0-36.0); Mean Corpuscular Volume 98.6 fL (80.0-100.0); Monocytes % (auto) 5.4 % (0.0-12.0); Neutrophils # (auto) 17.8 10 ^3/uL (1.6-8.6); Neutrophils % (auto) 92.6 % (37.0-80.0); Red Blood Cells 2.53 10^6/uL (4.5-5.90); Red Cell Distribution Width 13.6 % (11.8-14.3); White Blood Cell 19.2 10^3/uL (4.4-10.8)
[2022-08-04] MEDS: ACCU-CHEK COMFORT CURVE STRIP VI SCH ×4 (06:23→22:08)
[2022-08-04 06:24] LABS: Albumin 3.1 g/dL (3.4-5.0); Calcium 8.1 mg/dL (8.5-10.1); Potassium 4.1 mmol/L (3.5-5.1)
[2022-08-04] MEDS: InsuLIN REG 1unit/0.01ml Soln (100units/ml) SC SCH ×4 (06:24→22:00)
[2022-08-04 06:29] LABS: BUN/Creatinine Ratio 21.4 (10.0-20.0); Bilirubin, Total 0.6 mg/dL (0.2-1.0); Total Protein 6.1 g/dL (6.4-8.2)
[2022-08-04] MEDS: NOREPINEPHRINE 8 MG/250ML KIT 250 ML IV SCH (07:47)
[2022-08-04] MEDS ORDERED: cefTRIAXone 1GM/50ML D5W 50 ML IV SCH (09:00)
[2022-08-04] MEDS: fentaNYL Drip 2500mCg/250mlNS 250 ML IV SCH (09:15)
[2022-08-04] MEDS: ASPirin 81 mg TAB PO SCH ×2 (09:27→09:29)
[2022-08-04] MEDS: SODIUM CHLOR 0.9% PF (SALINE LOCK) 10ML VIAL/SYR IV SCH ×2 (09:27→22:08)
[2022-08-04] MEDS: MIDAZOLAM DRIP 50 mg/50mL 50 ML IV SCH (11:23)
[2022-08-04] MEDS: ATORVASTATIN 20 MG TAB PO SCH (22:08)
[2022-08-05] VITALS (105 sets, daily range): BP systolic 95–152; BP diastolic 29–100
[2022-08-05] MEDS: MIDAZOLAM DRIP 50 mg/50mL 50 ML IV SCH (03:40)
[2022-08-05] MEDS: PIPERACILLIN-TAZOB 2.25GM 50 ML IV SCH (05:45)
[2022-08-05] MEDS: metroNIDAZOLE 500MG/100ML 100 ML IV SCH ×4 (05:45→23:45)
[2022-08-05] MEDS: NOREPINEPHRINE 8 MG/250ML KIT 250 ML IV SCH (05:58)
[2022-08-05] MEDS: PANTOPRAZOLE 40mg/50ML NS AE 50 ML IV SCH ×4 (05:59→19:54)
[2022-08-05] MEDS: SODIUM CHLORIDE 0.9% 1,000 ML IV SCH ×2 (06:44→23:25)
[2022-08-05] MEDS: ACCU-CHEK COMFORT CURVE STRIP VI SCH ×4 (06:54→21:32)
[2022-08-05] MEDS: InsuLIN REG 1unit/0.01ml Soln (100units/ml) SC SCH ×4 (06:54→21:32)
[2022-08-05] MEDS: ASPirin 81 mg TAB PO SCH (07:50)
[2022-08-05] MEDS: fentaNYL Drip 2500mCg/250mlNS 250 ML IV SCH ×2 (09:15→13:30)
[2022-08-05 09:49] LABS: Basophils # (auto) 0 10 ^3/uL (0-0.2); Basophils % (auto) 0.2 % (0.0-2.0); Eosinophils # (auto) 0 10 ^3/uL (0-0.8); Hemoglobin 8.3 g/dL (13.5-17.5); Lymphocytes # (auto) 0.8 10 ^3/uL (0.4-5.4); White Blood Cell 17.3 10^3/uL (4.4-10.8)
[2022-08-05 09:51] LABS: Hematocrit 24.9 % (41.0-53.0); Lymphocytes % (auto) 4.4 % (10.0-50.0); Mean Corpuscular Hemoglobin 32.8 pg (28.0-32.0); Mean Corpuscular Hgb Conc. 33.4 g/dL (32.0-36.0); Mean Corpuscular Volume 98.1 fL (80.0-100.0); Monocytes # (auto) 1.1 10 ^3/uL (0-1.3); Monocytes % (auto) 6.3 % (0.0-12.0); Neutrophils # (auto) 15.4 10 ^3/uL (1.6-8.6); Neutrophils % (auto) 89.1 % (37.0-80.0); Red Blood Cells 2.54 10^6/uL (4.5-5.90); Red Cell Distribution Width 14.2 % (11.8-14.3)
[2022-08-05] MEDS: SODIUM CHLOR 0.9% PF (SALINE LOCK) 10ML VIAL/SYR IV SCH ×2 (10:00→21:32)
[2022-08-05 10:25] LABS: Potassium 4.1 mmol/L (3.5-5.1)
[2022-08-05 10:32] LABS: Albumin 2.7 g/dL (3.4-5.0); BUN/Creatinine Ratio 18.9 (10.0-20.0); Bilirubin, Total 0.4 mg/dL (0.2-1.0); Calcium 8.4 mg/dL (8.5-10.1); Total Protein 5.8 g/dL (6.4-8.2)
[2022-08-05] MEDS: PIPERACILLIN-TAZOB 3.375GM 100 ML IV SCH ×2 (15:05→21:32)
[2022-08-05] MEDS: ATORVASTATIN 20 MG TAB PO SCH (21:32)
[2022-08-06] VITALS (105 sets, daily range): BP systolic 69–171; BP diastolic 26–101
[2022-08-06] MEDS: PANTOPRAZOLE 40mg/50ML NS AE 50 ML IV SCH ×5 (02:15→21:41)
[2022-08-06] MEDS: NOREPINEPHRINE 8 MG/250ML KIT 250 ML IV SCH (04:03)
[2022-08-06] MEDS: metroNIDAZOLE 500MG/100ML 100 ML IV SCH ×4 (05:48→23:57)
[2022-08-06] MEDS: PIPERACILLIN-TAZOB 3.375GM 100 ML IV SCH ×3 (05:48→21:36)
[2022-08-06] MEDS: InsuLIN REG 1unit/0.01ml Soln (100units/ml) SC SCH ×4 (06:30→21:41)
[2022-08-06] MEDS: ACCU-CHEK COMFORT CURVE STRIP VI SCH ×4 (06:30→21:41)
[2022-08-06] MEDS: MIDAZOLAM DRIP 50 mg/50mL 50 ML IV SCH (09:15)
[2022-08-06] MEDS: ASPirin 81 mg TAB PO SCH (09:42)
[2022-08-06] MEDS: SODIUM CHLOR 0.9% PF (SALINE LOCK) 10ML VIAL/SYR IV SCH ×2 (09:42→21:36)
[2022-08-06] MEDS ORDERED: FUROSEMIDE 20 MG/2 ML VIAL IV ONE (09:45)
[2022-08-06 11:39] LABS: Urine Bacteria MOD /hpf (None Seen); Urine Blood 3+ /uL (Negative); Urine WBC 102 /hpf (0 - 3)
[2022-08-06] MEDS: SODIUM CHLORIDE 0.9% 1,000 ML IV SCH (13:29)
[2022-08-06] MEDS: ATORVASTATIN 20 MG TAB PO SCH (21:36)
[2022-08-06] MEDS: fentaNYL Drip 2500mCg/250mlNS 250 ML IV SCH (23:53)
[2022-08-07] VITALS (100 sets, daily range): BP systolic 80–174; BP diastolic 33–112
[2022-08-07] MEDS: PANTOPRAZOLE 40mg/50ML NS AE 50 ML IV SCH ×4 (02:21→19:29)
[2022-08-07] MEDS: NOREPINEPHRINE 8 MG/250ML KIT 250 ML IV SCH (05:00)
[2022-08-07 05:40] LABS: Basophils # (auto) 0 10 ^3/uL (0-0.2); Basophils % (auto) 0.3 % (0.0-2.0); Eosinophils # (auto) 0.1 10 ^3/uL (0-0.8); Hematocrit 25.2 % (41.0-53.0); Hemoglobin 8.5 g/dL (13.5-17.5); Lymphocytes # (auto) 0.8 10 ^3/uL (0.4-5.4); Lymphocytes % (auto) 9.1 % (10.0-50.0); Mean Corpuscular Hemoglobin 33.3 pg (28.0-32.0); Mean Corpuscular Hgb Conc. 33.9 g/dL (32.0-36.0); Mean Corpuscular Volume 98.4 fL (80.0-100.0); Monocytes # (auto) 0.6 10 ^3/uL (0-1.3); Monocytes % (auto) 7.3 % (0.0-12.0); Neutrophils # (auto) 7.3 10 ^3/uL (1.6-8.6); Neutrophils % (auto) 82.3 % (37.0-80.0); Red Blood Cells 2.56 10^6/uL (4.5-5.90); Red Cell Distribution Width 13.5 % (11.8-14.3); White Blood Cell 8.9 10^3/uL (4.4-10.8)
[2022-08-07] MEDS: PIPERACILLIN-TAZOB 3.375GM 100 ML IV SCH (05:46)
[2022-08-07] MEDS: metroNIDAZOLE 500MG/100ML 100 ML IV SCH ×3 (05:46→17:25)
[2022-08-07 05:57] LABS: Albumin 2.2 g/dL (3.4-5.0); Calcium 8.2 mg/dL (8.5-10.1)
[2022-08-07 06:02] LABS: BUN/Creatinine Ratio 19.6 (10.0-20.0); Bilirubin, Total 0.4 mg/dL (0.2-1.0); Total Protein 5.4 g/dL (6.4-8.2)
[2022-08-07] MEDS: InsuLIN REG 1unit/0.01ml Soln (100units/ml) SC SCH ×4 (07:00→21:34)
[2022-08-07] MEDS: ACCU-CHEK COMFORT CURVE STRIP VI SCH ×4 (07:00→21:33)
[2022-08-07] MEDS ORDERED: POTASSIUM CHL 20MEQ/100ML 100 ML IV ONE (08:45)
[2022-08-07] MEDS: MIDAZOLAM DRIP 50 mg/50mL 50 ML IV SCH (08:59)
[2022-08-07] MEDS: SODIUM CHLOR 0.9% PF (SALINE LOCK) 10ML VIAL/SYR IV SCH ×2 (09:00→21:32)
[2022-08-07] MEDS: ASPirin 81 mg TAB PO SCH (10:00)
[2022-08-07] MEDS: FREE WATER GT SCH ×4 (10:00→21:35)
[2022-08-07] MEDS ORDERED: EPINEPHrine HCL 0.5 ML NEB ONE (13:13)
[2022-08-07] MEDS: MEROPENEM 1GM IVPB 100 ML IV SCH ×2 (13:41→21:36)
[2022-08-07] MEDS: ATORVASTATIN 20 MG TAB PO SCH (21:35)
[2022-08-08] VITALS (46 sets, daily range): BP systolic 89–157; BP diastolic 48–101
[2022-08-08] MEDS: metroNIDAZOLE 500MG/100ML 100 ML IV SCH ×4 (00:39→21:41)
[2022-08-08] MEDS: PANTOPRAZOLE 40mg/50ML NS AE 50 ML IV SCH ×6 (00:39→23:03)
[2022-08-08] MEDS: FREE WATER GT SCH ×7 (01:59→22:00)
[2022-08-08] MEDS: NOREPINEPHRINE 8 MG/250ML KIT 250 ML IV SCH (05:00)
[2022-08-08 05:26] LABS: Basophils # (auto) 0 10 ^3/uL (0-0.2); Eosinophils # (auto) 0 10 ^3/uL (0-0.8); Eosinophils % (auto) 0.1 % (0.0-7.0); Hemoglobin 9.9 g/dL (13.5-17.5); Lymphocytes # (auto) 0.6 10 ^3/uL (0.4-5.4); Monocytes # (auto) 0.8 10 ^3/uL (0-1.3); Neutrophils # (auto) 8.2 10 ^3/uL (1.6-8.6); White Blood Cell 9.5 10^3/uL (4.4-10.8)
[2022-08-08 05:28] LABS: Basophils % (auto) 0.1 % (0.0-2.0); Hematocrit 28.6 % (41.0-53.0); Mean Corpuscular Hemoglobin 33.6 pg (28.0-32.0); Mean Corpuscular Hgb Conc. 34.5 g/dL (32.0-36.0); Mean Corpuscular Volume 97.5 fL (80.0-100.0); Monocytes % (auto) 8.1 % (0.0-12.0); Neutrophils % (auto) 85.7 % (37.0-80.0); Red Blood Cells 2.93 10^6/uL (4.5-5.90); Red Cell Distribution Width 13.5 % (11.8-14.3)
[2022-08-08 05:36] LABS: Calcium 8.7 mg/dL (8.5-10.1); Magnesium 1.7 mg/dL (1.6-2.6); Potassium 3.2 mmol/L (3.5-5.1)
[2022-08-08] MEDS: MEROPENEM 1GM IVPB 100 ML IV SCH (05:40)
[2022-08-08] MEDS: InsuLIN REG 1unit/0.01ml Soln (100units/ml) SC SCH ×3 (06:40→17:00)
[2022-08-08] MEDS: ACCU-CHEK COMFORT CURVE STRIP VI SCH ×3 (06:45→17:00)
[2022-08-08] MEDS: MORPHINE SULFATE INJ 2 MG/ml SYRG IV PRN ×2 (07:29→21:43)
[2022-08-08] MEDS ORDERED: POTASSIUM CHL 20MEQ/100ML 100 ML IV ONE (07:45)
[2022-08-08] MEDS: MIDAZOLAM DRIP 50 mg/50mL 50 ML IV SCH (09:15)
[2022-08-08] MEDS: fentaNYL Drip 2500mCg/250mlNS 250 ML IV SCH (09:15)
[2022-08-08] MEDS: SODIUM CHLOR 0.9% PF (SALINE LOCK) 10ML VIAL/SYR IV SCH ×2 (09:42→21:41)
[2022-08-08] MEDS: ASPirin 81 mg TAB PO SCH (09:43)
[2022-08-08] MEDS ORDERED: TPN PER PHARMACY 0 ML IV SCH (10:15)
[2022-08-08 12:49] LABS: Phosphorus 1.9 mg/dL (2.5-4.90)
[2022-08-08] MEDS ORDERED: POTASSIUM PHOSPHATE 44 MEQ in D5W 5% 250 ML IV ONE (13:30)
[2022-08-08] MEDS: AMINO ACID INFUSION IN D10W 1,000 ML IV NR (20:17)
[2022-08-08] MEDS: ATORVASTATIN 20 MG TAB PO SCH (22:00)
[2022-08-09] VITALS (25 sets, daily range): BP systolic 103–154; BP diastolic 32–79
[2022-08-09] MEDS ORDERED: DEXTROSE (50%) 50ML SYRG IV SCH
[2022-08-09] MEDS: InsuLIN REG 1unit/0.01ml Soln (100units/ml) SC SCH ×4 (00:02→16:58)
[2022-08-09] MEDS: ACCU-CHEK COMFORT CURVE STRIP VI SCH ×4 (00:03→16:58)
[2022-08-09 01:26] LABS: Basophils # (auto) 0 10 ^3/uL (0-0.2); Basophils % (auto) 0.3 % (0.0-2.0); Eosinophils # (auto) 0 10 ^3/uL (0-0.8); Eosinophils % (auto) 0.1 % (0.0-7.0); Hemoglobin 9.7 g/dL (13.5-17.5); Lymphocytes # (auto) 0.7 10 ^3/uL (0.4-5.4); Lymphocytes % (auto) 6.2 % (10.0-50.0); Mean Corpuscular Hemoglobin 32.6 pg (28.0-32.0); Mean Corpuscular Hgb Conc. 33.6 g/dL (32.0-36.0); Mean Corpuscular Volume 97.1 fL (80.0-100.0); Monocytes # (auto) 0.9 10 ^3/uL (0-1.3); Monocytes % (auto) 8.1 % (0.0-12.0); Neutrophils % (auto) 85.3 % (37.0-80.0); Nucleated Red Blood Cells % 0.1 %; Red Blood Cells 2.99 10^6/uL (4.5-5.90); Red Cell Distribution Width 13.3 % (11.8-14.3); White Blood Cell 11.7 10^3/uL (4.4-10.8)
[2022-08-09] MEDS: FREE WATER GT SCH ×6 (01:27→22:00)
[2022-08-09 01:39] LABS: Albumin 2.4 g/dL (3.4-5.0); BUN/Creatinine Ratio 16.3 (10.0-20.0); Calcium 8.6 mg/dL (8.5-10.1); Magnesium 1.9 mg/dL (1.6-2.6); Potassium 3.4 mmol/L (3.5-5.1)
[2022-08-09 01:41] LABS: Bilirubin, Total 0.5 mg/dL (0.2-1.0); Phosphorus 1.7 mg/dL (2.5-4.90); Total Protein 5.9 g/dL (6.4-8.2)
[2022-08-09] MEDS: MORPHINE SULFATE INJ 2 MG/ml SYRG IV PRN (02:50)
[2022-08-09] MEDS: NOREPINEPHRINE 8 MG/250ML KIT 250 ML IV SCH (04:06)
[2022-08-09] MEDS: PANTOPRAZOLE 40mg/50ML NS AE 50 ML IV SCH ×4 (04:06→20:47)
[2022-08-09] MEDS ORDERED: POTASSIUM CHL 20MEQ/100ML 100 ML IV ONE (06:00)
[2022-08-09] MEDS ORDERED: MAGNESIUM SULFATE 1GM/100ML 100 ML IV ONE (06:00)
[2022-08-09] MEDS ORDERED: POTASSIUM PHOSPHATE 44 MEQ in D5W 5% 250 ML IV ONE (06:00)
[2022-08-09] MEDS: metroNIDAZOLE 500MG/100ML 100 ML IV SCH ×3 (06:14→23:37)
[2022-08-09] MEDS: HALOPERIDOL LACTATE 5 MG/ML INJ VIAL IM PRN (06:15)
[2022-08-09] MEDS: SODIUM CHLOR 0.9% PF (SALINE LOCK) 10ML VIAL/SYR IV SCH ×2 (07:22→22:00)
[2022-08-09] MEDS: cefTRIAXone 1GM/50ML D5W 50 ML IV SCH (07:44)
[2022-08-09] MEDS: ASPirin 81 mg TAB PO SCH (07:45)
[2022-08-09] MEDS: MIDAZOLAM DRIP 50 mg/50mL 50 ML IV SCH (09:15)
[2022-08-09] MEDS: fentaNYL Drip 2500mCg/250mlNS 250 ML IV SCH (09:15)
[2022-08-09 12:45] LABS: Magnesium 2.1 mg/dL (1.6-2.6); Potassium 3.8 mmol/L (3.5-5.1)
[2022-08-09] MEDS ORDERED: CLOPIDOGREL 300 MG TAB PO ONE (13:00)
[2022-08-09] MEDS: AMINO ACID INFUSION IN D10W 1,000 ML IV NR (19:49)
[2022-08-09] MEDS ORDERED: TPN PER PHARMACY IV NR ×10 (20:00)
[2022-08-09] MEDS: ATORVASTATIN 20 MG TAB PO SCH (23:36)
[2022-08-10] VITALS (12 sets, daily range): BP systolic 104–142; BP diastolic 47–66
[2022-08-10] MEDS: FREE WATER GT SCH ×5 (02:27→16:55)
[2022-08-10] MEDS: PANTOPRAZOLE 40mg/50ML NS AE 50 ML IV SCH ×5 (02:27→21:15)
[2022-08-10] MEDS: NOREPINEPHRINE 8 MG/250ML KIT 250 ML IV SCH (05:00)
[2022-08-10] MEDS: ACCU-CHEK COMFORT CURVE STRIP VI SCH ×4 (06:00→17:40)
[2022-08-10] MEDS: InsuLIN REG 1unit/0.01ml Soln (100units/ml) SC SCH ×4 (06:00→17:41)
[2022-08-10] MEDS: metroNIDAZOLE 500MG/100ML 100 ML IV SCH (06:00)
[2022-08-10 07:48] LABS: Basophils # (auto) 0 10 ^3/uL (0-0.2); Basophils % (auto) 0.4 % (0.0-2.0); Eosinophils # (auto) 0.2 10 ^3/uL (0-0.8); Eosinophils % (auto) 2.3 % (0.0-7.0); Hematocrit 26.6 % (41.0-53.0); Hemoglobin 9.2 g/dL (13.5-17.5); Lymphocytes % (auto) 9.9 % (10.0-50.0); Mean Corpuscular Hgb Conc. 34.4 g/dL (32.0-36.0); Mean Corpuscular Volume 95.9 fL (80.0-100.0); Monocytes % (auto) 10.6 % (0.0-12.0); Neutrophils # (auto) 7.6 10 ^3/uL (1.6-8.6); Neutrophils % (auto) 76.8 % (37.0-80.0); Red Blood Cells 2.77 10^6/uL (4.5-5.90); Red Cell Distribution Width 13.6 % (11.8-14.3); White Blood Cell 9.9 10^3/uL (4.4-10.8)
[2022-08-10] MEDS: MIDAZOLAM DRIP 50 mg/50mL 50 ML IV SCH (07:48)
[2022-08-10] MEDS: fentaNYL Drip 2500mCg/250mlNS 250 ML IV SCH (07:48)
[2022-08-10] MEDS: SODIUM CHLOR 0.9% PF (SALINE LOCK) 10ML VIAL/SYR IV SCH (07:49)
[2022-08-10 08:13] LABS: Albumin 2.3 g/dL (3.4-5.0); Calcium 7.7 mg/dL (8.5-10.1); Magnesium 2.2 mg/dL (1.6-2.6); Potassium 3.3 mmol/L (3.5-5.1)
[2022-08-10 08:16] LABS: BUN/Creatinine Ratio 25.7 (10.0-20.0); Bilirubin, Total 0.4 mg/dL (0.2-1.0); Total Protein 5.3 g/dL (6.4-8.2)
[2022-08-10] MEDS: cefTRIAXone 1GM/50ML D5W 50 ML IV SCH (08:38)
[2022-08-10] MEDS: ASPirin 81 mg TAB PO SCH (08:39)
[2022-08-10] MEDS: CLOPIDOGREL BISULFATE 75 MG TAB PO SCH (08:39)
[2022-08-10] MEDS ORDERED: POTASSIUM PHOSPHATE 44 MEQ in D5W 5% 250 ML IV ONE (10:00)
[2022-08-10] MEDS ORDERED: TPN PER PHARMACY IV NR ×10 (20:00)
[2022-08-11] MEDS: FREE WATER GT SCH ×7 (00:22→22:13)
[2022-08-11] MEDS: SODIUM CHLOR 0.9% PF (SALINE LOCK) 10ML VIAL/SYR IV SCH ×3 (00:22→22:13)
[2022-08-11] MEDS: ATORVASTATIN 20 MG TAB PO SCH ×2 (00:22→22:10)
[2022-08-11] MEDS: InsuLIN REG 1unit/0.01ml Soln (100units/ml) SC SCH ×4 (00:24→18:12)
[2022-08-11] MEDS: ACCU-CHEK COMFORT CURVE STRIP VI SCH ×4 (00:27→18:07)
[2022-08-11] MEDS: PANTOPRAZOLE 40mg/50ML NS AE 50 ML IV SCH ×2 (02:46→08:41)
[2022-08-11 06:03] LABS: Basophils # (auto) 0 10 ^3/uL (0-0.2); Basophils % (auto) 0.2 % (0.0-2.0); Eosinophils # (auto) 0.5 10 ^3/uL (0-0.8); Eosinophils % (auto) 4.3 % (0.0-7.0); Hematocrit 29.8 % (41.0-53.0); Hemoglobin 9.9 g/dL (13.5-17.5); Lymphocytes # (auto) 1.3 10 ^3/uL (0.4-5.4); Lymphocytes % (auto) 10.5 % (10.0-50.0); Mean Corpuscular Hemoglobin 32.9 pg (28.0-32.0); Mean Corpuscular Hgb Conc. 33.2 g/dL (32.0-36.0); Mean Corpuscular Volume 99.3 fL (80.0-100.0); Monocytes # (auto) 1.1 10 ^3/uL (0-1.3); Monocytes % (auto) 9.1 % (0.0-12.0); Neutrophils # (auto) 9.5 10 ^3/uL (1.6-8.6); Neutrophils % (auto) 75.9 % (37.0-80.0); Red Cell Distribution Width 13.9 % (11.8-14.3); White Blood Cell 12.6 10^3/uL (4.4-10.8)
[2022-08-11 06:16] LABS: Albumin 2.4 g/dL (3.4-5.0); Magnesium 2.2 mg/dL (1.6-2.6); Potassium 3.7 mmol/L (3.5-5.1)
[2022-08-11 06:19] LABS: BUN/Creatinine Ratio 25.3 (10.0-20.0)
[2022-08-11 06:22] LABS: Bilirubin, Total 0.4 mg/dL (0.2-1.0); Phosphorus 2.6 mg/dL (2.5-4.90); Total Protein 5.5 g/dL (6.4-8.2)
[2022-08-11] MEDS: HALOPERIDOL LACTATE 5 MG/ML INJ VIAL IM PRN (06:36)
[2022-08-11] MEDS: cefTRIAXone 1GM/50ML D5W 50 ML IV SCH (08:58)
[2022-08-11 09:00] VITALS: BP 118/52
[2022-08-11] MEDS: PANTOPRAZOLE 40 MG/10 ML VIAL INJ IV SCH (10:13)
[2022-08-11] MEDS: ASPirin 81 mg TAB PO SCH (10:14)
[2022-08-11] MEDS: CLOPIDOGREL BISULFATE 75 MG TAB PO SCH (10:14)
[2022-08-11 13:00] VITALS: BP 117/56
[2022-08-11 17:00] VITALS: BP 143/69
[2022-08-11] MEDS ORDERED: TPN PER PHARMACY IV NR ×10 (20:00)
[2022-08-11 22:00] VITALS: BP 133/65
[2022-08-12] MEDS: InsuLIN REG 1unit/0.01ml Soln (100units/ml) SC SCH ×4 (00:21→17:51)
[2022-08-12] MEDS: ACCU-CHEK COMFORT CURVE STRIP VI SCH ×4 (00:24→17:51)
[2022-08-12] MEDS: FREE WATER GT SCH ×6 (02:15→22:00)
[2022-08-12 07:20] LABS: Potassium 3.8 mmol/L (3.5-5.1)
[2022-08-12 07:26] LABS: Albumin 2.5 g/dL (3.4-5.0); BUN/Creatinine Ratio 25.3 (10.0-20.0); Bilirubin, Total 0.4 mg/dL (0.2-1.0); Calcium 7.9 mg/dL (8.5-10.1); Magnesium 2.3 mg/dL (1.6-2.6); Phosphorus 2.6 mg/dL (2.5-4.90); Total Protein 5.5 g/dL (6.4-8.2)
[2022-08-12 09:00] VITALS: BP 126/60
[2022-08-12] MEDS: cefTRIAXone 1GM/50ML D5W 50 ML IV SCH (09:21)
[2022-08-12] MEDS: PANTOPRAZOLE 40 MG/10 ML VIAL INJ IV SCH (09:21)
[2022-08-12] MEDS: SODIUM CHLOR 0.9% PF (SALINE LOCK) 10ML VIAL/SYR IV SCH ×2 (09:21→22:00)
[2022-08-12] MEDS: CLOPIDOGREL BISULFATE 75 MG TAB PO SCH (09:22)
[2022-08-12] MEDS: ASPirin 81 mg TAB PO SCH (09:22)
[2022-08-12 13:00] VITALS: BP 114/59
[2022-08-12 17:00] VITALS: BP 100/46
[2022-08-12] MEDS ORDERED: TPN PER PHARMACY IV NR ×10 (20:00)
[2022-08-12 22:00] VITALS: BP 146/63
[2022-08-13] MEDS: ACCU-CHEK COMFORT CURVE STRIP VI SCH ×4 (01:31→18:45)
[2022-08-13] MEDS: InsuLIN REG 1unit/0.01ml Soln (100units/ml) SC SCH ×4 (01:58→18:00)
[2022-08-13] MEDS: ATORVASTATIN 20 MG TAB PO SCH ×2 (01:59→22:22)
[2022-08-13] MEDS: FREE WATER GT SCH ×3 (02:13→10:44)
[2022-08-13 06:30] LABS: Basophils # (auto) 0 10 ^3/uL (0-0.2); Basophils % (auto) 0.3 % (0.0-2.0); Eosinophils # (auto) 0.6 10 ^3/uL (0-0.8); Eosinophils % (auto) 5.3 % (0.0-7.0); Hematocrit 25.8 % (41.0-53.0); Hemoglobin 8.8 g/dL (13.5-17.5); Lymphocytes # (auto) 1.1 10 ^3/uL (0.4-5.4); Lymphocytes % (auto) 9.5 % (10.0-50.0); Mean Corpuscular Hemoglobin 33.2 pg (28.0-32.0); Mean Corpuscular Hgb Conc. 33.9 g/dL (32.0-36.0); Mean Corpuscular Volume 97.9 fL (80.0-100.0); Monocytes # (auto) 1.1 10 ^3/uL (0-1.3); Monocytes % (auto) 9.8 % (0.0-12.0); Neutrophils # (auto) 8.7 10 ^3/uL (1.6-8.6); Neutrophils % (auto) 75.1 % (37.0-80.0); Red Blood Cells 2.64 10^6/uL (4.5-5.90); Red Cell Distribution Width 14.4 % (11.8-14.3); White Blood Cell 11.5 10^3/uL (4.4-10.8)
[2022-08-13 06:47] LABS: Potassium 4.4 mmol/L (3.5-5.1)
[2022-08-13 07:01] LABS: Albumin 2.3 g/dL (3.4-5.0); BUN/Creatinine Ratio 31.6 (10.0-20.0); Bilirubin, Total 0.5 mg/dL (0.2-1.0); Calcium 7.7 mg/dL (8.5-10.1); Magnesium 2.6 mg/dL (1.6-2.6); Phosphorus 3.2 mg/dL (2.5-4.90); Total Protein 5.5 g/dL (6.4-8.2)
[2022-08-13 09:00] VITALS: BP 140/54
[2022-08-13] MEDS: SODIUM CHLOR 0.9% PF (SALINE LOCK) 10ML VIAL/SYR IV SCH ×2 (10:44→22:27)
[2022-08-13] MEDS: CLOPIDOGREL BISULFATE 75 MG TAB PO SCH (10:44)
[2022-08-13] MEDS: PANTOPRAZOLE 40 MG/10 ML VIAL INJ IV SCH (10:44)
[2022-08-13] MEDS: ASPirin 81 mg TAB PO SCH (10:44)
[2022-08-13] MEDS: cefTRIAXone 1GM/50ML D5W 50 ML IV SCH (10:45)
[2022-08-13 17:00] VITALS: BP 128/56
[2022-08-13] MEDS ORDERED: TPN PER PHARMACY IV NR ×11 (20:00)
[2022-08-14] MEDS: ACCU-CHEK COMFORT CURVE STRIP VI SCH ×3 (00:45→12:58)
[2022-08-14] MEDS: InsuLIN REG 1unit/0.01ml Soln (100units/ml) SC SCH ×3 (01:18→12:58)
[2022-08-14 05:00] VITALS: BP 115/47
[2022-08-14 05:55] LABS: Potassium 4.2 mmol/L (3.5-5.1)
[2022-08-14 06:04] LABS: Albumin 2.4 g/dL (3.4-5.0); BUN/Creatinine Ratio 29.3 (10.0-20.0); Bilirubin, Total 0.4 mg/dL (0.2-1.0); Calcium 8.1 mg/dL (8.5-10.1); Magnesium 2.4 mg/dL (1.6-2.6); Total Protein 5.6 g/dL (6.4-8.2)
[2022-08-14 09:21] VITALS: BP 104/59
[2022-08-14 09:25] VITALS: BP 111/66
[2022-08-14] MEDS: SODIUM CHLOR 0.9% PF (SALINE LOCK) 10ML VIAL/SYR IV SCH ×2 (10:29→21:18)
[2022-08-14] MEDS: PANTOPRAZOLE 40 MG/10 ML VIAL INJ IV SCH (10:29)
[2022-08-14] MEDS: ASPirin 81 mg TAB PO SCH (10:29)
[2022-08-14] MEDS: CLOPIDOGREL BISULFATE 75 MG TAB PO SCH (10:29)
[2022-08-14] MEDS: cefTRIAXone 1GM/50ML D5W 50 ML IV SCH (10:29)
[2022-08-14 12:30] VITALS: BP 119/55
[2022-08-14] MEDS ORDERED: ACCU-CHEK COMFORT CURVE STRIP VI SCH (18:00)
[2022-08-14] MEDS ORDERED: InsuLIN REG 1unit/0.01ml Soln (100units/ml) SC SCH (18:00)
[2022-08-14] MEDS ORDERED: DEXTROSE (50%) 50ML SYRG IV SCH (18:00)
[2022-08-14] MEDS ORDERED: TPN PER PHARMACY IV NR ×12 (20:00)
[2022-08-14] MEDS: ATORVASTATIN 20 MG TAB PO SCH (21:14)
[2022-08-14 22:00] VITALS: BP 108/51
[2022-08-15 05:00] VITALS: BP 115/60
[2022-08-15 06:24] LABS: Potassium 4.1 mmol/L (3.5-5.1)
[2022-08-15 06:33] LABS: Albumin 2.6 g/dL (3.4-5.0); BUN/Creatinine Ratio 25.3 (10.0-20.0); Bilirubin, Total 0.6 mg/dL (0.2-1.0); Calcium 8.6 mg/dL (8.5-10.1); Magnesium 2.1 mg/dL (1.6-2.6); Phosphorus 2.8 mg/dL (2.5-4.90)
[2022-08-15 09:12] VITALS: BP 110/64
[2022-08-15] MEDS: CLOPIDOGREL BISULFATE 75 MG TAB PO SCH (09:36)
[2022-08-15] MEDS: SODIUM CHLOR 0.9% PF (SALINE LOCK) 10ML VIAL/SYR IV SCH (09:36)
[2022-08-15] MEDS: ASPirin 81 mg TAB PO SCH (09:36)
[2022-08-15] MEDS: PANTOPRAZOLE 40 MG/10 ML VIAL INJ IV SCH (09:36)
[2022-08-15] MEDS: cefTRIAXone 1GM/50ML D5W 50 ML IV SCH (10:05)
[2022-08-15 12:30] VITALS: BP 125/61
[2022-08-15 16:51] VITALS: BP 130/79
[2022-08-15 17:06] VITALS: BP 140/63
== END 2022-08-15 18:09 | DRG 853 ==
LOC: ER 01:44 → TELE 04:50 → ICU CENTRL 14:03 → TELE-CENTR 08-10 11:46 → CENTRAL 08-14 15:17
PROVIDERS: ADMIT Nurse Practitioner Family; ATTEND Internal Medicine Geriatric Medicine
PROC: 02HV33Z Insertion of Infusion Device into Superior Vena Cava, Percutaneous Approach (ICD-10-PCS; 2022-08-03)
PROC: 5A1955Z Respiratory Ventilation, Greater than 96 Consecutive Hours (ICD-10-PCS; 2022-08-03)
PROC: 0DU907Z Supplement Duodenum with Autologous Tissue Substitute, Open Approach (ICD-10-PCS; principal; 2022-08-03 08:05)
DX: A41.9 Sepsis, unspecified organism (principal); I21.4 Non-ST elevation (NSTEMI) myocardial infarction; K65.9 Peritonitis, unspecified; J96.01 Acute respiratory failure with hypoxia; R65.21 Severe sepsis with septic shock; J69.0 Pneumonitis due to inhalation of food and vomit; E87.1 Hypo-osmolality and hyponatremia; N17.9 Acute kidney failure, unspecified; N39.0 Urinary tract infection, site not specified; E87.0 Hyperosmolality and hypernatremia; D64.9 Anemia, unspecified; E78.5 Hyperlipidemia, unspecified; E87.5 Hyperkalemia; E11.9 Type 2 diabetes mellitus without complications; I11.0 Hypertensive heart disease with heart failure; I50.9 Heart failure, unspecified; E87.6 Hypokalemia; I49.3 Ventricular premature depolarization; Z95.5 Presence of coronary angioplasty implant and graft; I25.2 Old myocardial infarction; Z79.899 Other long term (current) drug therapy; Z79.84 Long term (current) use of oral hypoglycemic drugs; Z79.82 Long term (current) use of aspirin; Z79.02 Long term (current) use of antithrombotics/antiplatelets; Z82.49 Family history of ischemic heart disease and other diseases of the circulatory system; Z83.3 Family history of diabetes mellitus
CPT/HCPCS: 36415; 36569; 36600; 71045; 71260; 74177; 76856; 80048; 80053; 81001; 82805; 82962; 83036; 83735; 83880; 84100; 84132; 84478; 84484; 85007; 85025; 85027; 85610; 85730; 86850; 86900; 86901; 87070; 87077; 87081; 87086; 87186; 87205; 93005; 94002; 94003; 94640; 97110; 97116; 97163; 97530; C9113; G0378; J0330; J0696; J1100; J1815; J2001; J2185; J2250; J2405; J2543; J2704; J3480; J3490; J7060; P9047

== ENCOUNTER 2023-03-10 23:45 | Inpatient (IN) | payer OTHER ==
[~2023-03-10] VITALS: Ht 172.7 cm; Wt 64.7 kg
[~2023-03-10 23:45] MED LIST changes: -AMLO-496 PO; +AMLO1TAB23 PO; +ATOR20TA50 PO; -CIPR-273 PO; -LOSA-39 PO; +LOSA100T58 PO; -POTA8TAB2 PO; +POTA8TAB38 PO
[2023-03-11] VITALS (7 sets, daily range): BP systolic 88–107; BP diastolic 49–75; PULSE 75–85; RESP 14–18; TEMP 98.9–99.3; O2SAT 95–96
[2023-03-11] MEDS ORDERED: SODIUM CHLORIDE 0.9% 1,000 ML IV ONE (00:15)
[2023-03-11] MEDS ORDERED: MORPHINE SULFATE 4 MG/ML SYR/VIAL IV PRN (00:15)
[2023-03-11] MEDS ORDERED: ONDANSETRON HCL 4 MG/2 ML VIAL IV ONE (00:30)
[2023-03-11 01:12] LABS: Basophils # (auto) 0 10 ^3/uL (0-0.2); Basophils % (auto) 0.1 % (0.0-2.0); Eosinophils # (auto) 0 10 ^3/uL (0-0.8); Hematocrit 34.5 % (41.0-53.0); Hemoglobin 11.3 g/dL (13.5-17.5); Lymphocytes # (auto) 0.2 10 ^3/uL (0.4-5.4); Lymphocytes % (auto) 1.6 % (10.0-50.0); Mean Corpuscular Hemoglobin 31.8 pg (28.0-32.0); Mean Corpuscular Hgb Conc. 32.8 g/dL (32.0-36.0); Mean Corpuscular Volume 96.9 fL (80.0-100.0); Monocytes # (auto) 0.9 10 ^3/uL (0-1.3); Monocytes % (auto) 6.7 % (0.0-12.0); Neutrophils # (auto) 11.9 10 ^3/uL (1.6-8.6); Neutrophils % (auto) 91.6 % (37.0-80.0); Red Blood Cells 3.56 10^6/uL (4.5-5.90); Red Cell Distribution Width 15.1 % (11.8-14.3)
[2023-03-11 01:25] LABS: INR 1.09 (0.9-1.15); Prothrombin Time 11.4 sec (9.3-11.8)
[2023-03-11 01:32] LABS: Alanine Aminotransferase 13 U/L (7-40); Alkaline Phosphatase 87 U/L (46-116); Anion Gap 8 (5-15); Aspartate Aminotransferase 13 U/L (13-40); BUN/Creatinine Ratio 18.8 (10.0-20.0); Blood Urea Nitrogen 27 mg/dL (9-23); Calcium 8.5 mg/dL (8.7-10.4); Carbon Dioxide 24 mmol/L (20-30); Chloride 106 mmol/L (98-107); Glucose 150 mg/dL (74-106); Magnesium 1.9 mg/dL (1.6-2.6); Sodium 138 mmol/L (136-145)
[2023-03-11 01:33] LABS: Albumin 3.8 g/dL (3.2-4.8); Bilirubin, Total 0.4 mg/dL (0.2-1.0); Total Protein 6.6 g/dL (5.7-8.2)
[2023-03-11] MEDS ORDERED: ONDANSETRON HCL 4 MG/2 ML VIAL IV PRN (03:00)
[2023-03-11] MEDS ORDERED: HYDROcodone-ACET 5/325MG TAB PO PRN (03:00)
[2023-03-11] MEDS ORDERED: DEXTROSE (50%) 50ML SYRG IV PRN (03:00)
[2023-03-11] MEDS ORDERED: ACETAMINOPHEN 325 MG TAB PO PRN (03:00)
[2023-03-11] MEDS: InsuLIN REG 1unit/0.01ml Soln (100units/ml) SC SCH ×4 (06:00→23:06)
[2023-03-11] MEDS: ACCU-CHEK COMFORT CURVE STRIP VI SCH ×4 (06:58→23:06)
[2023-03-11 08:43] LABS: Urine Bacteria NONE SEEN /hpf (None Seen); Urine Blood Negative /uL (Negative); Urine Clarity Clear (Clear); Urine Color Yellow (Yellow); Urine Hyaline Cast MOD /lpf (0 - 2); Urine Mucus FEW (None Seen); Urine Protein, UAD Negative (Negative); Urine Specific Gravity 1.021 (1.001-1.035); Urine Urobilinogen Normal (Negative); Urine WBC 1 /hpf (0 - 3)
[2023-03-11] MEDS: amLODIPine BESYLATE 5 MG TAB PO SCH (09:35)
[2023-03-11] MEDS: FUROSEMIDE 20 MG TAB PO SCH (09:35)
[2023-03-11] MEDS: CLOPIDOGREL BISULFATE 75 MG TAB PO SCH (09:36)
[2023-03-11] MEDS ORDERED: ATORVASTATIN 20 MG TAB PO SCH (22:00)
[2023-03-12] VITALS (9 sets, daily range): BP systolic 99–113; BP diastolic 53–57; PULSE 78–98; RESP 16–20; TEMP 96.9–98.4; O2SAT 93–100
[2023-03-12] MEDS: InsuLIN REG 1unit/0.01ml Soln (100units/ml) SC SCH ×3 (06:00→18:00)
[2023-03-12] MEDS: ACCU-CHEK COMFORT CURVE STRIP VI SCH ×3 (06:30→17:58)
[2023-03-12 06:50] LABS: Basophils # (auto) 0 10 ^3/uL (0-0.2); Basophils % (auto) 0.2 % (0.0-2.0); Eosinophils # (auto) 0 10 ^3/uL (0-0.8); Eosinophils % (auto) 0.2 % (0.0-7.0); Hematocrit 30.9 % (41.0-53.0); Hemoglobin 10.4 g/dL (13.5-17.5); Lymphocytes # (auto) 1.2 10 ^3/uL (0.4-5.4); Lymphocytes % (auto) 12.6 % (10.0-50.0); Mean Corpuscular Hemoglobin 32.2 pg (28.0-32.0); Mean Corpuscular Hgb Conc. 33.7 g/dL (32.0-36.0); Mean Corpuscular Volume 95.8 fL (80.0-100.0); Monocytes # (auto) 1.4 10 ^3/uL (0-1.3); Monocytes % (auto) 14.1 % (0.0-12.0); Neutrophils # (auto) 7.2 10 ^3/uL (1.6-8.6); Neutrophils % (auto) 72.9 % (37.0-80.0); Nucleated Red Blood Cells % 0.1 %; Red Blood Cells 3.23 10^6/uL (4.5-5.90); Red Cell Distribution Width 14.8 % (11.8-14.3); White Blood Cell 9.9 10^3/uL (4.4-10.8)
[2023-03-12 06:59] LABS: Alanine Aminotransferase 15 U/L (7-40); Alkaline Phosphatase 83 U/L (46-116); Anion Gap 5 (5-15); BUN/Creatinine Ratio 25.5 (10.0-20.0); Blood Urea Nitrogen 25 mg/dL (9-23); Calcium 8.7 mg/dL (8.7-10.4); Carbon Dioxide 29 mmol/L (20-30); Chloride 105 mmol/L (98-107); Glucose 95 mg/dL (74-106); Potassium 3.7 mmol/L (3.5-5.1); Sodium 139 mmol/L (136-145)
[2023-03-12 07:00] LABS: Albumin 3.6 g/dL (3.2-4.8); Aspartate Aminotransferase 34 U/L (13-40); Bilirubin, Total 1.5 mg/dL (0.2-1.0); Total Protein 6.3 g/dL (5.7-8.2)
[2023-03-12] MEDS: FUROSEMIDE 20 MG TAB PO SCH (10:00)
[2023-03-12] MEDS: amLODIPine BESYLATE 5 MG TAB PO SCH (10:00)
[2023-03-12] MEDS: CLOPIDOGREL BISULFATE 75 MG TAB PO SCH (10:00)
[2023-03-12] MEDS ORDERED: ceFAZolin 2 GM/D5W100ml 100 ML IV ONE (13:08)
[2023-03-12] MEDS ORDERED: BUPIVACAINE 0.5% P/F INJ 10 ML VIAL ONE (13:08)
[2023-03-12] MEDS ORDERED: fentaNYL CITRATE 100 MCG/2 ML VL ONE (13:34)
[2023-03-12] MEDS ORDERED: MIDAZOLAM HCL 2MG/2ML 2ml VIAL (1mg/ml) ONE (13:35)
[2023-03-12] MEDS ORDERED: GLYCOPYRROLATE 0.2 MG/ML 1ML VIAL ONE (13:36)
[2023-03-12] MEDS ORDERED: ONDANSETRON HCL 4 MG/2 ML VIAL ONE (13:36)
[2023-03-12] MEDS ORDERED: PROPOFOL 10 MG/ML 20 ML IV ONE (13:36)
[2023-03-12] MEDS ORDERED: ePHEDrine SULFATE 50 MG/ML AMP ONE (13:36)
[2023-03-12] MEDS ORDERED: DexAMETHasone SOD PHOS 10MG/1ML VIAL INJ ONE (13:36)
[2023-03-12] MEDS ORDERED: LIDOCAINE 2% (LOCAL ANESTH.) PF 5ml SDV ONE (13:37)
[2023-03-12] MEDS ORDERED: HYDROmorphone HCL 2 MG/ML VL/or syr ONE (13:53)
[2023-03-12] MEDS ORDERED: ETOMIDATE (2MG/ML) 20ML VIAL IV ONE (13:56)
[2023-03-12] MEDS ORDERED: TRANEXAMIC ACID 20 ML ONE (14:06)
[2023-03-12] MEDS ORDERED: ONDANSETRON HCL 4 MG/2 ML VIAL IV PRN (14:15)
[2023-03-12] MEDS ORDERED: ACCU-CHEK COMFORT CURVE STRIP VI ONE (14:15)
[2023-03-12] MEDS ORDERED: HYDROmorphone HCL 2 MG/ML VL/or syr IV PRN (14:15)
[2023-03-12] MEDS ORDERED: BISACODYL 5 MG EC TAB PO PRN (15:00)
[2023-03-12] MEDS: ceFAZolin 1GM/50ML 50 ML IV SCH ×2 (15:00→20:54)
[2023-03-12] MEDS: ATORVASTATIN 20 MG TAB PO SCH (21:01)
[2023-03-12] MEDS: DOCUSATE SOD 100 MG CAP PO SCH (21:02)
[2023-03-12] MEDS: METOPROLOL TARTRATE 25 MG TAB PO SCH (22:10)
[2023-03-13] VITALS (8 sets, daily range): BP systolic 98–116; BP diastolic 53–58; PULSE 77–91; RESP 17–18; TEMP 96.9–98.1; O2SAT 95–100
[2023-03-13] MEDS: InsuLIN REG 1unit/0.01ml Soln (100units/ml) SC SCH ×4 (00:49→18:08)
[2023-03-13] MEDS: ceFAZolin 1GM/50ML 50 ML IV SCH (02:43)
[2023-03-13] MEDS: ACCU-CHEK COMFORT CURVE STRIP VI SCH ×4 (06:00→18:07)
[2023-03-13 07:01] LABS: Hematocrit 26.5 % (41.0-53.0); Hemoglobin 8.9 g/dL (13.5-17.5)
[2023-03-13] MEDS: METOPROLOL TARTRATE 25 MG TAB PO SCH ×2 (10:00→22:00)
[2023-03-13] MEDS: FUROSEMIDE 20 MG TAB PO SCH (10:09)
[2023-03-13] MEDS: CLOPIDOGREL BISULFATE 75 MG TAB PO SCH (10:09)
[2023-03-13] MEDS: ASPirin 81 mg TAB PO SCH (10:09)
[2023-03-13] MEDS: DOCUSATE SOD 100 MG CAP PO SCH ×2 (10:09→22:00)
[2023-03-13] MEDS: ATORVASTATIN 20 MG TAB PO SCH (22:00)
[2023-03-14 05:13] VITALS: BP 102/48; PULSE 80; RESP 19; TEMP 98.2; O2SAT 92
[2023-03-14] MEDS: ACCU-CHEK COMFORT CURVE STRIP VI SCH ×3 (06:00→11:44)
[2023-03-14] MEDS: InsuLIN REG 1unit/0.01ml Soln (100units/ml) SC SCH ×3 (06:00→11:44)
[2023-03-14 06:35] LABS: Hematocrit 23.5 % (41.0-53.0); Hemoglobin 7.9 g/dL (13.5-17.5)
[2023-03-14 07:58] LABS: COVID19 ANTIGEN SOFIA FIA NEGATIVE (NEGATIVE)
[2023-03-14 08:00] VITALS: O2SAT 95
[2023-03-14 09:00] VITALS: BP 115/49; PULSE 79; RESP 18; TEMP 97.3; O2SAT 93
[2023-03-14] MEDS: DOCUSATE SOD 100 MG CAP PO SCH (10:09)
[2023-03-14] MEDS: ASPirin 81 mg TAB PO SCH (10:09)
[2023-03-14] MEDS: FUROSEMIDE 20 MG TAB PO SCH (10:09)
[2023-03-14] MEDS: CLOPIDOGREL BISULFATE 75 MG TAB PO SCH (10:09)
[2023-03-14] MEDS: METOPROLOL TARTRATE 25 MG TAB PO SCH (10:10)
[2023-03-14 13:00] VITALS: BP 96/42; PULSE 77; RESP 18; TEMP 98; O2SAT 99
[2023-03-14 14:47] VITALS: BP 115/99; PULSE 79; TEMP 36.7
[2023-03-14 17:00] VITALS: BP 91/49; PULSE 93; RESP 20; TEMP 97.8; O2SAT 90
== END 2023-03-14 17:30 | DRG 481 ==
LOC: EDUNIT# 23:45 → ER 23:45 → EDBD 23:45 → OVERFLOW 03-11 02:53 → CENTRAL 03-11 08:25
PROVIDERS: ADMIT Nurse Practitioner; ATTEND Family Medicine
PROC: 0QS704Z Reposition Left Upper Femur with Internal Fixation Device, Open Approach (ICD-10-PCS; principal; 2023-03-12 13:32)
DX: S72.142A Displaced intertrochanteric fracture of left femur, initial encounter for closed fracture (principal); N17.9 Acute kidney failure, unspecified; W01.0XXA Fall on same level from slipping, tripping and stumbling without subsequent striking against object, initial encounter; E11.65 Type 2 diabetes mellitus with hyperglycemia; I50.9 Heart failure, unspecified; E78.5 Hyperlipidemia, unspecified; N40.0 Benign prostatic hyperplasia without lower urinary tract symptoms; I25.10 Atherosclerotic heart disease of native coronary artery without angina pectoris; I11.0 Hypertensive heart disease with heart failure; Z87.11 Personal history of peptic ulcer disease; Z95.5 Presence of coronary angioplasty implant and graft; Z51.5 Encounter for palliative care; Z79.84 Long term (current) use of oral hypoglycemic drugs; Z83.3 Family history of diabetes mellitus; Z82.49 Family history of ischemic heart disease and other diseases of the circulatory system; Y93.89 Activity, other specified; Y92.89 Other specified places as the place of occurrence of the external cause; Y99.8 Other external cause status
CPT/HCPCS: 36415; 70450; 71045; 71250; 72125; 72170; 73502; 74176; 76000; 80053; 81001; 82962; 83735; 83880; 85014; 85018; 85025; 85610; 85730; 86850; 86900; 86901; 87426; 93306; 97110; 97116; 97163; 97530; A4565; G0378; J0690; J1100; J1815; J2001; J2250; J2405; J2704; J3490